=== PATIENT | female | born 1985 | race Caucasian/White ===

== ENCOUNTER 2023-03-24 13:20 | Outpatient (CLI) | payer OTHER, SELFPAY | END 2023-03-24 13:21 | disposition home or self-care (01) | LOC: NFLDREF 13:21 | PROVIDERS: PCP Physician Assistant; Visit Provider Physician Assistant | DX: E03.9 Hypothyroidism, unspecified (principal) | CPT/HCPCS: 84443 ==

== ENCOUNTER 2023-12-13 15:44 | Outpatient (CLI) | payer BC, SELFPAY ==
[2023-12-13 15:54] VITALS: PULSE 98; O2SAT 99
[2023-12-13 15:57] VITALS: BP 111/62; PULSE 86
[2023-12-13 15:58] VITALS: RESP 16; TEMP 36.5
[2023-12-13 16:13] VITALS: BP 114/63; PULSE 90
[2023-12-13] MEDS: LACTATED RINGERS 1000 ML 1,000 ML 500 ML IV (16:21)
[2023-12-13] MEDS: METOCLOPRAMIDE HCL 5 MG/ML INJ 10 MG IVP (16:26)
[2023-12-13 16:27] VITALS: BP 107/64; PULSE 91
--- NOTE | 2023-12-13 18:16 | PC.OBNST ---
NST Note NST Note Start: 12/13/23 15:17 Freq: ONCE Status: Active Protocol: Document 12/13/23 17:50 KENIA (Rec: 12/13/23 18:16 KENIA [id number]) NST Note 5 Para (# of births) 3 EDC 02/19/24 Gestational Age In Weeks & Days 30 Weeks & 2 Days High Risk Factors Advanced Maternal Age Patient Presented with Complaint(s) of Pain Other Complaints Pt. sent to Center from [facility] clinic for IV hydration. Pt. has sinus infection and reported Headache that is not resolving . Appropriate for Gestational Age Yes DANIELA Strickland Date 12/13/23 Appropriate for Gestational Age Yes DANIELA Luna RN OB NST charge Yes Complete NST Note via Write Note Yes The provider's electronic signature indicates the NST is reactive/appropriate for gestational age. *Note to provider: If an addendum is required, open the patient's chart and click on the note under the Nurse/Allied Health tab.
== END 2023-12-13 18:42 | disposition home or self-care (01) ==
LOC: OB OUT 15:45 → OB 15:45
PROVIDERS: PCP Physician Assistant; Visit Provider Family Medicine
DX: O09.523 Supervision of elderly multigravida, third trimester (principal); Z3A.30 30 weeks gestation of pregnancy
CPT/HCPCS: 59025; G0463; J2765; J7120

== ENCOUNTER 2023-12-23 09:15 | Outpatient (CLI) | payer BC, SELFPAY ==
[2023-12-23 09:27] VITALS: BP 109/62; PULSE 94; PULSE 98; TEMP 36.9; O2SAT 98
--- NOTE | 2023-12-23 09:45 | US_ITS ---
Patient: RAYMOND ENNIS Facility:?[facility] Patient ID:?[id number] Site Patient ID:?[id number]. Site :?[id number] Study:?US-OB Pelvis -12/23/2023 11:07:14 AM Ordering Physician:?DR. PRIETO Final Report: INDICATION: Thirty-one week 5 day . Abdominal pain. BPP and evaluate placenta Technique: Multiple transabdominal grayscale and Doppler images obtained. Comparison: None FINDINGS: breathing movements: 2 Gross body movements: 2 tone: 2 Amniotic fluid volume: 2 Total: 8/8 Amniotic Fluid SDP: 5.2 cm. Heart rate is 137 beats per minute. Placenta anterior and appears within normal limits. Vertex presentation. Cervix closed and 3.6 cm in length. IMPRESSION: 1. Normal biophysical profile score of 8/8. 2. Anterior placenta appears within normal limits. Dictated by Charles Jerry MD @ 12/23/2023 11:16:37 AM Signed by:?Charles Jerry MD @12/23/2023 11:16:37 AM (Electronic Signature)
--- NOTE | 2023-12-23 10:05 | P.OBLDTN_ITS ---
OB - Triage/Final Diagnosis Visit Information Date Seen: 12/23/23 Narrative: The patient is a 38 year old 5 para 3 at 31.5 weeks gestation by who presents with abdominal pain. Pain started about 5-6 days ago and has been worsening, particularly with certain activities like lifting her son. She notes that it's getting to the point where if the area is bumped, she has pain. Has not resolved with Tylenol. Yesterday, she was less active and the pain wasn't as bad. Pain is about an inch away from the umbilicus on the L. No bulging or skin changes in the area. Denies vaginal bleeding or LOF. Endorses normal movement. Does have some occasional abdominal tightening/contractions, but nothing that is consistent. Endorses intermittent and brief bouts of nausea. Denies fevers, vomiting, dysuria, hematuria, or diarrhea. Also notes sensation of increased pressure with urination. course is notable for AMA, hypothyroidism on Synthroid, and NIPT high risk for T21. She was recently treated for sinusitis with a course of Augmentin and prednisone. Reports that symptoms of headache and facial pain have significantly improved. Evaluation Vital signs: Vital Signs - 24 hr 12/23/23 09:27 12/23/23 09:27 Temperature 98.4 F Pulse Rate 94 Blood Pressure 109/62 Pulse Oximetry 98 Comments: Gen: alert, pleasant, NAD Heart: RRR, no murmurs Lungs: CTA b/l, comfortable respirations on room air Abd: gravid, soft. Tender to palpation 1-2 cm from umbilicus on L without bulging or obvious defect in abdominal musculature. Also mildly tender to palpation in suprapubic region. Otherwise nontender. Fetus (Infant A) Heart Rate Baseline: 135 [employer] Variability: Moderate (11-25) Monitor Accelerations: Present Monitor Decelerations: None Final Diagnosis (1) Abdominal pain affecting : Status: Acute Problem details: Reactive NST. BPP 05/02. Anterior placenta appears normal. UA unremarkable. Suspect pain is musculoskeletal in nature. Patient is reassured. Return precautions reviewed in detail.
[2023-12-23 10:26] LABS: Appearance Urine Clear (Clear); Bilirubin Urine Negative (Negative); Blood Urine Negative (Negative); Color Urine Yellow (Yellow); Glucose Urine Negative (Negative); Ketones Urine Negative (Negative); Leukocyte Esterase Urine Negative (Negative); Nitrite Urine Negative (Negative); Protein Urine Negative (Negative); Specific Gravity Urine 1.015 (1.000-1.030); Urobilinogen Urine 0.2 (0.2-1.0); pH Urine 6.5 (5.0-8.5)
--- NOTE | 2023-12-23 12:09 | PC.OBNST ---
NST Note NST Note Start: 12/23/23 09:30 Freq: ONCE Status: Active Protocol: Document 12/23/23 11:10 MARCO (Rec: 12/23/23 12:07 MARCO [id number]) NST Note 5 Para (# of births) 3 EDC 02/19/24 Gestational Age In Weeks & Days 31 Weeks & 5 Days Patient Presented with Complaint(s) of Pain If Pain, describe location abdominal pain, left of umbilicus Reactive Yes Appropriate for Gestational Age Yes RN Sandip Ackerman, RN Date 12/23/23 Reactive Yes Appropriate for Gestational Age Yes DANIELA Vann RN Date 12/23/23 OB NST charge Yes Complete NST Note via Write Note Yes The provider's electronic signature indicates the NST is reactive/appropriate for gestational age. *Note to provider: If an addendum is required, open the patient's chart and click on the note under the Nurse/Allied Health tab.
== END 2023-12-23 11:06 | disposition home or self-care (01) ==
LOC: OB OUT 09:16 → OB 09:18
PROVIDERS: PCP Physician Assistant; Visit Provider Family Medicine
DX: O26.893 Other specified pregnancy related conditions, third trimester (principal); R10.9 Unspecified abdominal pain; Z3A.31 31 weeks gestation of pregnancy
CPT/HCPCS: 59025; 76819; 81003; 99199; G0463